=== PATIENT | male | born 1950 | race Caucasian/White ===

== ENCOUNTER 2024-07-05 06:04 | Day surgery (SDC) | payer MEDICARE, BC ==
[2024-07-04 10:15] LABS: BASOPHILS # (AUTO) 0.1 X10'3 (0-0.2); BASOPHILS % (AUTO) 0.9 % (0-1); EOSINOPHILS # (AUTO) 0.1 X10'3 (0-0.9); EOSINOPHILS % (AUTO) 2.2 % (0-6); HEMATOCRIT 50.2 % (42.0-52.0); HEMOGLOBIN 17.3 g/dl (14.0-17.9); LYMPHOCYTES # (AUTO) 1.3 X10'3 (1.1-4.8); LYMPHOCYTES % (AUTO) 23.8 % (21-51); MEAN CORPUSCULAR HEMOGLOBIN 33.6 PG (27.0-31.0); MEAN CORPUSCULAR HGB CONC 34.4 g/dL (33.0-36.5); MEAN CORPUSCULAR VOLUME 97.6 FL (78-98); MEAN PLATELET VOLUME 9.9 FL (7.4-10.4); MONOCYTES # (AUTO) 0.5 X10'3 (0-0.9); MONOCYTES % (AUTO) 8.5 % (2-12); NEUTROPHILS # (AUTO) 3.6 X10'3 (1.8-7.7); NEUTROPHILS % (AUTO) 64.6 % (42-75); PLATELET COUNT 147 X10'3 (140-440); RED BLOOD COUNT 5.15 X10'6 (4.70-6.10); RED CELL DISTRIBUTION WIDTH 14.2 % (11.5-14.5); WHITE BLOOD COUNT 5.6 X10'3 (4.5-11.0)
[2024-07-04 10:24] LABS: ALBUMIN 3.5 G/DL (3.4-5.0); ANION GAP 8 (8-16); BLOOD UREA NITROGEN 15 MG/DL (7-18); BUN/CREATININE RATIO 12.2 (10.0-20.0); CHLORIDE 105 MMOL/L (99-107); CREATININE 1.23 MG/DL (0.60-1.10); GLUCOSE 113 MG/DL (70-104); POTASSIUM 4.2 MMOL/L (3.5-5.1); SODIUM 139 MMOL/L (135-145); eGFR 58 ML/MIN
[2024-07-04 10:27] LABS: APTT 27 SECONDS (22-32); INR 1.2 INR
[2024-07-05] VITALS (10 sets, daily range): BP systolic 128–160; BP diastolic 65–86; PULSE 52–61; RESP 8–14; TEMP 97.4; O2SAT 92–95
[~2024-07-05] VITALS: Ht 185.4 cm; Wt 123.3 kg
[2024-07-05] MEDS ORDERED: Vitamin D (06:38)
[2024-07-05] MEDS ORDERED: PANT40TA54 PO (06:38)
[2024-07-05] MEDS ORDERED: ATOR40TA72 PO (06:38)
[2024-07-05] MEDS ORDERED: FLEC100T3 PO (06:38)
[2024-07-05] MEDS ORDERED: DILT-36 PO (06:38)
[2024-07-05] MEDS ORDERED: CARV6.2555 PO (06:38)
[2024-07-05] MEDS ORDERED: WARF4TAB9 PO (06:38)
[2024-07-05] MEDS: LORazepam 0.5 MG tablet PO PRN (07:07)
[2024-07-05] MEDS: diphenhydrAMINE 25mg capsule PO PRN (07:08)
[2024-07-05] MEDS: sodium bicarbonate 1meq/ml syr 150 ML in dextrose 5%-water 1,000 ML IV ONE (07:08)
[2024-07-05] MEDS: normal saline 1,000 ML IV SCH (07:08)
[2024-07-05] MEDS ORDERED: LIDOcaine 1% (10mg/ml) 2ml vial ONE ×2 (07:21→07:25)
[2024-07-05] MEDS ORDERED: midazolam 1 mg/ML 2ml injection ONE (07:22)
[2024-07-05] MEDS ORDERED: heparin 1,000unit/ml 10ml vial 10 ML ONE (07:22)
[2024-07-05] MEDS ORDERED: iohexol 350MG/ML 100ml bottle IV ONE (07:22)
[2024-07-05] MEDS ORDERED: iohexol 350 MG/ML 50ML vial IV ONE (07:22)
[2024-07-05] MEDS ORDERED: verapamil 2.5 mg/ml inj IV ONE (07:22)
[2024-07-05] MEDS ORDERED: fentaNYL/PF 50MCG/1 ML 2ML syringe ONE (07:22)
[2024-07-05] MEDS ORDERED: nitroGLYCERIN 500mcg/5mL D5W 5 ML IV ONE (07:23)
[2024-07-05] MEDS ORDERED: normal saline 1000ml 1,000 ML IV SCH (09:20)
[2024-07-05] MEDS ORDERED: HYDROcodone/acetaminophen 10/325mg tab PO PRN (09:25)
[2024-07-05] MEDS ORDERED: HYDROcodone/acetaminophen 5mg/325mg tablet PO PRN (09:25)
[2024-07-05 11:50] LABS: ISTAT Hct ART 44 %PCV (42-52); ISTAT O2 SATURATION ARTERIAL 94 % (95-98); ISTAT SOURCE ART
== END 2024-07-05 13:00 | disposition home or self-care (01) ==
LOC: SSTAY O 06:04
PROVIDERS: ATTEND Internal Medicine Cardiovascular Disease
DX: I25.10 Atherosclerotic heart disease of native coronary artery without angina pectoris (principal); I10 Essential (primary) hypertension; E78.5 Hyperlipidemia, unspecified; E66.9 Obesity, unspecified; I48.0 Paroxysmal atrial fibrillation; G47.30 Sleep apnea, unspecified; Z79.899 Other long term (current) drug therapy; Z68.35 Body mass index [BMI] 35.0-35.9, adult; Z91.013 Allergy to seafood
CPT/HCPCS: 36415; 76937; 80048; 82803; 85014; 85025; 85610; 85730; 93005; 93460; 99152; 99153; A6258; A6402; C1725; C1894; J1644; J2001; J2250; J3010; J3490; J7030; J7070; Q0163; Q9967; Z7610